=== PATIENT | female | born 1985 | race Caucasian/White ===

== ENCOUNTER 2023-03-11 14:35 | Outpatient (CLI) | payer OTHER ==
[~2023-03-11] VITALS: Ht 152.4 cm; Wt 57.7 kg
[2023-03-11 15:05] VITALS: BP 107/53
[2023-03-11] MEDS ORDERED: ONDANSETRON 4 MG/2 ML (SDV) Z0FRAN IVP ONE (16:00)
[2023-03-11] MEDS ORDERED: LACTATED RINGERS 1,000 ML IV SCH (16:00)
[2023-03-11] MEDS ORDERED: PREN1TAB19 PO (17:11)
[2023-03-11] MEDS ORDERED: Kratom (17:11)
[2023-03-11 17:30] VITALS: BP 107/53
--- NOTE | 2023-03-13 11:55 | Physician Query-Final Dx ---
Clinic Account Progress/Dx Physician Query: Please give diagnosis Please include # weeks gestation Date of Service Mar 11, 2023 at 14:35 TRACY,JulMar 13, 2023 11:55
== END 2023-03-11 17:30 | disposition home or self-care (01) ==
LOC: WSo 14:35 → LDRP 14:37 → WSo 17:30
PROVIDERS: ATTEND Family Medicine
DX: O99.891 Other specified diseases and conditions complicating pregnancy (principal); R11.0 Nausea; R19.7 Diarrhea, unspecified; Z3A.00 Weeks of gestation of pregnancy not specified

== ENCOUNTER 2023-05-10 15:18 | Outpatient (CLI) | payer OTHER ==
[~2023-05-10] VITALS: Ht 152.4 cm; Wt 57.3 kg
[~2023-05-10 15:18] MED LIST: Kratom; PREN1TAB19 PO
[2023-05-10 15:30] VITALS: BP 108/57
[2023-05-10 15:53] LABS: BACTERIA,URINE TRACE /HPF; BILIRUBIN,URINE NEGATIVE (NEGATIVE); CLARITY,URINE CLEAR; COLOR,URINE YELLOW; GLUCOSE, URINE (UA) NEGATIVE (NEGATIVE); KETONES,URINE NEGATIVE (NEGATIVE); LEUKOCYTE ESTERASE ,URINE NEGATIVE (NEGATIVE); NITRITE,URINE NEGATIVE (NEGATIVE); PROTEIN,URINE NEGATIVE (NEGATIVE); SQUAMOUS EPITHELIAL CELL,UR RARE /HPF
[2023-05-10 16:08] LABS: AMPHETAMINE SCREEN, URINE POSITIVE (NEGATIVE); BARBITURATE SCREEN URINE NEGATIVE (NEGATIVE); CANNABINOID SCREEN, URINE NEGATIVE (NEGATIVE); COCAINE SCREEN URINE NEGATIVE (NEGATIVE); METHADONE STAT NEGATIVE (NEGATIVE); OPIATE SCREEN URINE NEGATIVE (NEGATIVE); OXYCODONE STAT NEGATIVE (NEGATIVE); PROPOXYPHENE STAT NEGATIVE (NEGATIVE); TRICYCLIC ANTIDEPRESSANTS SCRE NEGATIVE (NEGATIVE)
[2023-05-10] MEDS ORDERED: LACTATED RINGERS 1,000 ML 1,000 ML IV SCH ×2 (16:30→17:30)
[2023-05-10] MEDS ORDERED: LACTATED RINGERS 1,000 ML 1,000 ML IV ONE (16:35)
--- NOTE | 2023-05-10 19:35 | History & Physical-OB ---
OB - Chief Complaint & HPI Date/Time Date of Admission: Date of Admission: Date seen by a Provider: May 10, 2023 Time Seen by a Provider: 17:10 Chief Complaint/History OB-Reason for Admission/Chief: Obstetrical Complication Hx : 6 Hx Para: 3 Expected Date of Delivery: Jul 12, 2023 Gestational Age in Weeks: 31 Gestational Age in Days: 0 Other reason for admission: at 31w0d, presented to Labor and Delivery with complaint of contractions. She says she has never had painful contractions or started labor without her water being broken, but usually feels them more as tightening, and was noticing tightening around every 10 minutes this morning. 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 No heavy lifting. She denies vaginal bleeding, leaking fluid. Reports good movement. She denies complications with this , but has had nausea and vomiting ever since the beginning, still vomits about every other day, and her only previous obstetrical complication was a hemorrhage requiring d and c with her first delivery. She admits smoking, denies alcohol use, admits Kratom use which she states her first doctor in told her was okay. Denies any other substance use, has history in past, but reports last methamphetamine use year ago. Her medication list does not include it, but she states she uses albuterol inhaler around twice per week. History of Labs O neg, antibody neg, RI. HIV/hepB/hepC/RPR NR. GC/chlamydia neg. 1 hour gtt nml. Allergies and Home Medications Allergies Coded Allergies: No Known Drug Allergies (Unverified , 03/11/23) Patient Home Medication List Home Medication List Reviewed: Yes Vit/Iron Fumarate/FA ( Vitamins Tablet) 28 Mg Iron-800 Mcg Tablet, 1 EACH PO DAILY, (Reported) Entered as Reported by: MARIELENA DAMIAN on 03/11/231710 [Kratom] , BID, (Reported) Entered as Reported by: MARIELENA DAMIAN on 03/11/231710 OB - History Hx of Present Care: Yes Ultrasounds: Normal mid trimester US Obstetrical Complications: None Information Induced Hypertension: No Maternal Gestational Diabetes: No Hemorrhage: Yes Obstetrical History Hx : 6 Hx Para: 3 Hx # Term Pregnancies: 3 Hx # Pregnancies: 0 Number of Living Children: 3 Hx Total # of Abortions (Spona: 2 Hx Multiple Gestation: No Hx Ectopic : No Hx Stillbirth: No Hx Complication: Yes ( hemorrhage) Hx Induced Hypertens: No Hx Hemorrhage: Yes Delivery History Hx Dystocia: No Hx Forceps Assisted Delivery: No Hx Vacuum Extraction Assisted: No Hx Placenta Abnormality: No Hx Distress: No Hx Large For Gestational Age I: No Hx Small for Gestational Age I: No Hx Section: No Hx Vaginal Delivery Post C-Sec: No Hx Blood Disorders: No Adverse Rxn to Tranfusion: No Risk Variables Obstetrical Risk Variables: Not POA Anemia; POA Asthma; Not POA Autoimmune Disease, Not POA Bariatric Surgery, Not POA Bleeding Disorder, Not POA BMI >= 40, Not POA Cardiac Disease, Not POA Economic Housing Instabil, Not POA Gastrointestinal Disease, Not POA Gestational Diabetes, Not POA HIV, Not POA Hypertension, Not POA Product Safety Professional Anticoagulant U, Not POA Mental Health Disorder, Not POA Multiple , Not POA Neuromuscular Disease, Not POA Obstetrical VTE, Not POA Other Preeclampsia, Not POA Placenta Previa, Not POA Placental Abruption, Not POA Placenta Accreta Spectrum, Not POA Preexisting Diabetes, Not POA , Not POA Previous , Not POA Pulmonary Hypertension, Not POA Renal Disease, Not POA Severe Preeclampsia; Undetermined Substance Abuse; Not POA Thyrotoxicosis Patient Past Medical History PMHx: Mild intermittent asthma SurgHx: D and C Social History/Family History Alcohol Use: Denies Use Recreational Drug Use: Yes (Javi) Smoking Cessation: Current every day smoker 2nd Hand Smoke Exposure: No Immunizations Influenza Vaccine Up-to-Date: No; Not Current Rubella: immune RPR/VDRL: Negative GBS Status: Unknown HBsAG: Negative OB - Admission Exam Physical Exam Vitals: Vital Signs 05/10/23 15:30 Temp 36.2 Pulse 87 Resp 20 B/P (MAP) 108/57 Pulse Ox 99 O2 Delivery Room Air HEENT: NCAT Lungs: Clear Abdomen: Non tender Extremities: Normal Contractions on Admission: >10 Minutes Apart Labs Laboratory Tests Test 05/10/23 15:32 Range/Units Urine Color YELLOW Urine Clarity CLEAR Urine pH 6.0 5-9 Urine Specific [place] 1.025 H 1.016-1.022 Urine Protein NEGATIVE NEGATIVE Urine Glucose (UA) NEGATIVE NEGATIVE Urine Ketones NEGATIVE NEGATIVE Urine Nitrite NEGATIVE NEGATIVE Urine Bilirubin NEGATIVE NEGATIVE Urine Urobilinogen 0.2 < = 1.0 MG/DL Urine Leukocyte Esterase NEGATIVE NEGATIVE Urine RBC (Auto) TRACE H NEGATIVE Urine RBC NONE /HPF Urine WBC NONE /HPF Urine Squamous Epithelial Cells RARE /HPF Urine Crystals NONE /LPF Urine Bacteria TRACE /HPF Urine Casts NONE /LPF Urine Mucus NEGATIVE /LPF Urine Culture Indicated NO Urine Opiates Screen NEGATIVE NEGATIVE Urine Oxycodone Screen NEGATIVE NEGATIVE Urine Methadone Screen NEGATIVE NEGATIVE Urine Propoxyphene Screen NEGATIVE NEGATIVE Urine Barbiturates Screen NEGATIVE NEGATIVE Ur Tricyclic Antidepressants Screen NEGATIVE NEGATIVE Urine Phencyclidine Screen NEGATIVE NEGATIVE Urine Amphetamines Screen POSITIVE H NEGATIVE Urine Methamphetamines Screen POSITIVE H NEGATIVE Urine Benzodiazepines Screen NEGATIVE NEGATIVE Urine Cocaine Screen NEGATIVE NEGATIVE Urine Cannabinoids Screen NEGATIVE NEGATIVE OB - Assessment/Plan/Diagnosis Assessment Admission Dx contractions 31 weeks gestation Nonreassuring heart tones Urine toxicology positive for methamphetamines/amphetamines Asthma Admission Status: Observation Plan Problems: (1) Uterine contractions Assessment & Plan: Rare, with only a few contractions shortly after admit, none further. Continue to monitor. IVF bolus given. (2) Positive urine drug screen Assessment & Plan: Patient denies methamphetamine use, admits Kratom use. (3) Non-reassuring heart rate or rhythm affecting management of mother Assessment & Plan: heart tones with frequent periods of minimal variabili ty, occasional variable decelerations and borderline low baseline. Will give IVF bolus and monitor closely. Discussed if worsening, may need to consider transfer to facility with NICU in case of need for intervention. (4) 31 weeks gestation of FEDERICO MENENDEZ MD May 10, 2023 19:35
[2023-05-10 20:00] VITALS: BP 98/58
== END 2023-05-10 22:14 | disposition home or self-care (01) ==
LOC: LDRP 15:18 → WSo 15:18
PROVIDERS: ATTEND Family Medicine
DX: O62.9 Abnormality of forces of labor, unspecified (principal); Z3A.00 Weeks of gestation of pregnancy not specified
CPT/HCPCS: 80306; 81000; 96360; 96361; 99213

== ENCOUNTER 2023-06-11 11:26 | Outpatient (CLI) | payer OTHER ==
[~2023-06-11] VITALS: Ht 152.4 cm; Wt 58.6 kg
[2023-06-11 11:47] VITALS: BP 105/58
[2023-06-11 12:32] LABS: CLARITY,URINE CLEAR; COLOR,URINE YELLOW; GLUCOSE, URINE (UA) NEGATIVE (NEGATIVE); KETONES,URINE NEGATIVE (NEGATIVE); NITRITE,URINE NEGATIVE (NEGATIVE); PROTEIN,URINE NEGATIVE (NEGATIVE)
[2023-06-11 12:33] LABS: BACTERIA,URINE TRACE /HPF; BILIRUBIN,URINE NEGATIVE (NEGATIVE); LEUKOCYTE ESTERASE ,URINE NEGATIVE (NEGATIVE); WBC,URINE RARE /HPF
--- NOTE | 2023-06-12 08:48 | Physician Query-Final Dx ---
TRACY,06/12/23 0848: Clinic Account Progress/Dx Physician Query: Please give diagnosis Please include # weeks gestation Date of Service Jun 11, 2023 at 11:26 HALLIE MIRELES DO 06/12/23 1347: Clinic Account Progress/Dx DIAGNOSIS: Diagnosis 36 wk GA back pain TRACY,JulJun 12, 2023 08:48 HALLIE MIRELES DO Jun 12, 2023 13:47
== END 2023-06-11 13:22 | disposition home or self-care (01) ==
LOC: WSo 11:26 → LDRP 11:27 → WSo 13:22
PROVIDERS: ATTEND Family Medicine
DX: O99.891 Other specified diseases and conditions complicating pregnancy (principal); M54.9 Dorsalgia, unspecified; Z3A.36 36 weeks gestation of pregnancy
CPT/HCPCS: 81000; G0463; 99213

== ENCOUNTER 2023-06-20 15:09 | Outpatient (CLI) | payer OTHER ==
[~2023-06-20] VITALS: Ht 152.4 cm; Wt 58.4 kg
[2023-06-20] MEDS ORDERED: hydrOXYzine 25 MG CAPSULE PO ONE (15:45)
[2023-06-20] MEDS ORDERED: ACETAMINOPHEN 500 MG TABLET PO PRN (15:45)
[2023-06-20 15:52] VITALS: BP 105/57
[2023-06-20 16:19] LABS: CLARITY,URINE CLEAR; COLOR,URINE YELLOW; GLUCOSE, URINE (UA) NEGATIVE (NEGATIVE); KETONES,URINE 4+ (NEGATIVE); NITRITE,URINE NEGATIVE (NEGATIVE); PROTEIN,URINE NEGATIVE (NEGATIVE)
[2023-06-20 16:20] LABS: BACTERIA,URINE TRACE /HPF; BILIRUBIN,URINE NEGATIVE (NEGATIVE); LEUKOCYTE ESTERASE ,URINE NEGATIVE (NEGATIVE); SQUAMOUS EPITHELIAL CELL,UR RARE /HPF
== END 2023-06-20 20:05 ==
LOC: WSo 15:09 → LDRP 15:10 → WSo 20:05
PROVIDERS: ATTEND Family Medicine
DX: O26.899 Other specified pregnancy related conditions, unspecified trimester (principal); R11.10 Vomiting, unspecified; Z3A.00 Weeks of gestation of pregnancy not specified
CPT/HCPCS: 81000; 99213

== ENCOUNTER 2023-07-06 07:00 | Inpatient (IN) | payer OTHER ==
[2023-07-06] VITALS (68 sets, daily range): BP systolic 74–116; BP diastolic 44–65
[~2023-07-06] VITALS: Ht 152.4 cm; Wt 59.6 kg
[2023-07-06] MEDS ORDERED: MINERAL OIL 30 ML UDC TOP PRN (08:30)
[2023-07-06] MEDS ORDERED: D5 LR 1,000 ML IV SOLN 1,000 ML IV ONE (08:33)
[2023-07-06] MEDS: D5 LR 1,000 ML IV SOLN 1,000 ML IV SCH ×2 (08:38→16:44)
--- NOTE | 2023-07-06 08:38 | History & Physical-OB ---
OB - Chief Complaint & HPI Date/Time Date of Admission: Date of Admission: Jul 06, 2023 at 07:35 Date seen by a Provider: Jul 06, 2023 Time Seen by a Provider: 08:10 Chief Complaint/History OB-Reason for Admission/Chief: Induction of Labor Hx : 6 Hx Para: 3 Gestational Age in Weeks: 39 Gestational Age in Days: 1 Other reason for admission: Desires IOL History of Labs O Neg, Ab neg Rub Imm HIV/RPR/HepB/C NR Normal 1 hr GTT GBS neg Allergies and Home Medications Allergies Coded Allergies: No Known Drug Allergies (Unverified , 03/11/23) Patient Home Medication List Home Medication List Reviewed: Yes Vit/Iron Fumarate/FA ( Vitamins Tablet) 28 Mg Iron-800 Mcg Tablet, 1 EACH PO DAILY, (Reported) Entered as Reported by: MARIELENA DAMIAN on 03/11/23 4895 OB - History Hx of Present Care: Yes Ultrasounds: Normal mid trimester US Obstetrical Complications: None Medical Complications: None Obstetrical History Hx : 6 Hx Para: 3 Hx # Term Pregnancies: 3 Number of Living Children: 3 Hx Multiple Gestation: No Hx Stillbirth: No Hx Complication: Yes ( hemorrhage) Hx Induced Hypertens: No Delivery History Hx Dystocia: No Hx Large For Gestational Age I: No Hx Small for Gestational Age I: No Hx Section: No Hx Vaginal Delivery Post C-Sec: No Hx Blood Disorders: No Adverse Rxn to Tranfusion: No Patient Past Medical History PMHx: Mild intermittent asthma SurgHx: D and C Social History/Family History 2nd Hand Smoke Exposure: No OB - Admission Exam Physical Exam HEENT: NCAT Heart: Rhythm Normal Lungs: Clear Abdomen: Gravid Cervical Dilatation: 4cm Effacement: 50% Station: -1 Membranes: Intact Heart Rate: 120's Decelerations: No Decelerations Short Term Variability: Present 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 Variability: Average (6-25) Contractions on Admission: 6-10 Minutes Apart [place]a Scoring Tool (Modified) Dilation (cm): 3-4cm (2) Effacement (%): 51-79% (2) Descent/Station: -1,0 (2) Cervix Consistency: Medium(1) Cervix Position: Middle/Mid-Position (1) [place]a Score: 8 Labs Laboratory Tests Test 07/06/23 08:00 Range/Units OB - Assessment/Plan/Diagnosis Assessment Assessment: induction of labor Admission Dx Third Trimester 39 weeks gestation Admission Status: Inpatient Order (span 2 midnights) Reason for Inpatient Admission: Labor and post care Plan Other Plan 38 yo @ 39.1 wga here for elective IOL Plan - GBS neg - Pitocin induction - Desires Epidural KATJA KHAN MD Jul 06, 2023 08:38
[2023-07-06 08:42] LABS: BASOPHILS % (AUTO) 0 % (0-10); EOSINOPHILS # (AUTO) 0.1 10^3/uL (0.0-0.3); EOSINOPHILS % (AUTO) 1 % (0-10); HEMATOCRIT 30 % (35-52); HEMOGLOBIN 9.3 g/dL (11.5-16.0); LYMPHOCYTES # (AUTO) 2.3 10^3/uL (1.0-4.0); LYMPHOCYTES % (AUTO) 21 % (12-44); MEAN CORPUSCULAR HEMOGLOBIN 27 pg (25-34); MEAN CORPUSCULAR HGB CONC 32 g/dL (32-36); MEAN CORPUSCULAR VOLUME 85 fL (80-99); MEAN PLATELET VOLUME 9.4 fL (9.0-12.2); MONOCYTES # (AUTO) 0.9 10^3/uL (0.0-1.0); MONOCYTES % (AUTO) 8 % (0-12); NEUTROPHILS # (AUTO) 7.7 10^3/uL (1.8-7.8); NEUTROPHILS % (AUTO) 70 % (42-75); PLATELET COUNT 338 10^3/uL (130-400); WHITE BLOOD COUNT 11.1 10^3/uL (4.3-11.0)
[2023-07-06] MEDS ORDERED: OXYTOCIN DRIP PRE-MIX 500 ML IV SCH (08:45)
[2023-07-06 08:57] LABS: CLARITY,URINE CLEAR; COLOR,URINE YELLOW
[2023-07-06 08:58] LABS: BACTERIA,URINE FEW /HPF; BILIRUBIN,URINE NEGATIVE (NEGATIVE); GLUCOSE, URINE (UA) NEGATIVE (NEGATIVE); KETONES,URINE TRACE (NEGATIVE); LEUKOCYTE ESTERASE ,URINE TRACE (NEGATIVE); NITRITE,URINE NEGATIVE (NEGATIVE); PROTEIN,URINE TRACE (NEGATIVE)
[2023-07-06] MEDS ORDERED: fentaNYL 2 mcg/ml BUPIVA 0.125 100 ML ONE ×2 (13:34→23:23)
[2023-07-06] MEDS ORDERED: fentaNYL INJECTION 100 MCG/2 ML VIAL ONE (13:57)
[2023-07-06] MEDS ORDERED: LIDOCAINE PF 2% 5 ML VIAL ONE (13:57)
[2023-07-06] MEDS ORDERED: CATHETER FLUSH 10 ML SYR IV SCH (14:00)
[2023-07-06] MEDS: LACTATED RINGERS 1,000 ML 500 ML IV PRN (14:10)
--- OUTSIDE RECORDS SUMMARY | 2023-07-06 16:29 | XMS REPORT ---
Author ALEXANDER Gonzalez BANNER Organization Unknown Address [address] [place], [place] [id number] Phone Care Team Providers Care Merchandiser Seasonal Name Role Phone DK Austin Attending Social History Type Status Start Date End Date Code Code Syst em Sex Female Vital Signs Vital Sign Value Unit Deep Run Value Deep Run Unit Date/Time Recent/Initial? Code Code System Body Mass Index 25.39 kg/m2 06/22/2023 23:10 Initial 23150 -5 [facility] Systolic Blood Pressure 115 mm[Hg] 06/22/2023 23:10 Initial 8480- 6 [facility] Diastolic Blood Pressure 68 mm[Hg] 06/22/2023 23:10 Initial 8462- 4 [facility] Body Surface Area 1.58 m2 06/22/2023 23:10 Initial 3140- 1 LOINC Height 152.400 0 cm 60.00 in 06/22/2023 23:10 Initial 8302- 2 LOINC O2 Saturation 99 % 2022 23:10 Initial 99690 -5 [facility] Pulse 92.0 /min 06/22/2023 23:10 Initial 8867- 4 LOINC Respiration 20 /min 06/22/20 23:10 Initial 9279- 1 LOINC Temperature 36.8 Gini 98.2 F 06/22/20 23:10 Initial 8310- 5 LOINC Weight 58.97 kg 130.00 lbs 06/22/2023 23:10 Initial 60888 -7 [facility] Medications Medication Start Date End Date Route Frequency Dose Code Code System Medication Instructions Assessment You had the following problems:DENTAL PAIN Hospital Discharge Instructions Should you have any questions prior to discharge, please contact a member of your healthcare team. If you have left the hospital and have any questions, please contact your primary care physician. Reason For Referral No Data Found Problems Problem Start Date Resolved Date Status Code Code System DENTAL PAIN active 75343408 SNOMED-C T 06/22/2023 resolved 97335923 SNOMED-CT Allergies and Adverse Reactions Allergy Substance Reaction Severity Start Date Concern Status Co de Code System No Known Allergies Active 162219256 SNO MED-CT Plan of Treatment No Data Found Encounters Encounter Diagnosis Start Date Code Code Sys tem Toothache 06/22/2023 15760246 SNOMED-CT Personal Care Team Section Performer Name Performer Role Active Date Inactive Leonidas clemente
--- NOTE | 2023-07-06 17:45 | Labor Progress Note ---
Labor Progress Note Labor Progress Note Date Seen by Provider: Jul 06, 2023 Time Seen by Provider: 17:44 Subjective: Pt denies complaints. Comfortable with epidural. Objective: Assessment/Plan: Rachael Garvey is a (38 /Para 6 / 3,Gestational Age (wks)39.1 here for elective IOL CEFM/TOCO Continue pitocin protocol Anesthesia: Epidural in place, well controlled AROM 1714 clear Anticipate vaginal delivery. Vitals - Labs Vital Signs - I&O Vital Signs Date Time Temp Pulse Resp B/P (MAP) Pulse Ox O2 Delivery O2 Flow Rate FiO2 07/06/23 17:00 37.3 88 20 92/53 (66) 98 Room Air 07/06/23 16:46 86 20 96/53 (67) 99 Room Air 07/06/23 16:42 80 20 93/54 (67) 99 Room Air 07/06/23 16:30 87 20 93/58 (70) 99 Room Air 07/06/23 16:15 81 20 89/55 (66) 98 Room Air 07/06/23 16:00 86 20 94/56 (69) 98 Room Air 07/06/23 15:45 82 20 92/52 (65) 99 Room Air 07/06/23 15:30 88 20 95/54 (68) 99 Room Air 07/06/23 15:15 83 20 98/53 (68) 99 Room Air 07/06/23 15:00 92 20 92/58 (69) 99 Room Air 07/06/23 14:45 94 20 97/52 (67) 99 Room Air 07/06/23 14:37 90 20 102/57 (72) 99 Room Air 07/06/23 14:33 86 20 100/59 (73) 98 Room Air 07/06/23 14:29 86 20 98/54 (69) 98 Room Air 07/06/23 14:25 88 20 103/58 (73) 98 Room Air 07/06/23 14:21 37.4 86 20 102/58 (73) 99 Room Air 07/06/23 14:17 96 20 98/54 (69) 99 Room Air 07/06/23 14:13 91 20 109/57 (74) 99 Room Air 07/06/23 14:08 88 20 107/59 (75) 99 Room Air 07/06/23 14:03 93 20 108/58 (75) Room Air 07/06/23 13:50 95 20 109/65 (80) Room Air 07/06/23 13:48 95 20 101/57 (72) Room Air 07/06/23 13:33 88 20 102/57 (72) Room Air 07/06/23 13:18 88 20 105/56 (72) Room Air 07/06/23 13:03 83 20 105/58 (74) Room Air 07/06/23 12:48 86 20 103/61 (75) Room Air 07/06/23 12:33 86 20 104/53 (70) Room Air 07/06/23 12:18 86 20 101/51 (68) Room Air 07/06/23 12:00 87 20 95/54 (68) Room Air 07/06/23 11:45 88 20 103/57 (72) Room Air 07/06/23 11:30 36.7 87 20 113/54 (73) Room Air 07/06/23 11:16 86 20 107/62 (77) Room Air 07/06/23 11:02 90 20 105/60 (75) Room Air 07/06/23 10:55 85 20 102/59 (73) Room Air 07/06/23 10:30 83 20 96/55 (69) Room Air 07/06/23 10:15 84 20 101/63 (76) Room Air 07/06/23 10:00 91 20 101/60 (74) Room Air 07/06/23 09:45 90 20 81/47 (58) Room Air 07/06/23 09:30 92 20 90/59 (69) Room Air 07/06/23 09:15 90 20 100/63 (75) Room Air 07/06/23 07:51 36.8 91 20 97 Room Air Labs Laboratory Tests 07/06/23 08:00: White Blood Count 11.1H, Red Blood Count 3.46L, Hemoglobin 9.3L, Hematocrit 30L, Mean Corpuscular Volume 85, Mean Corpuscular Hemoglobin 27, Mean Corpuscular Hemoglobin Concent 32, Red Cell Distribution Width 15.5H, Platelet Count 338, Mean Platelet Volume 9.4, Immature Granulocyte % (Auto) 1, Neutrophils (%) (Auto) 70, Lymphocytes (%) (Auto) 21, Monocytes (%) (Auto) 8, Eosinophils (%) (Auto) 1, Basophils (%) (Auto) 0, Neutrophils # (Auto) 7.7, Lymphocytes # (Auto) 2.3, Monocytes # (Auto) 0.9, Eosinophils # (Auto) 0.1, Basophils # (Auto) 0.0, Immature Granulocyte # (Auto) 0.1, Urine Color YELLOW, Urine Clarity CLEAR, Urine pH 6.0, Urine Specific [place] 1.025H, Urine Protein TRACE, Urine Glucose (UA) NEGATIVE, Urine Ketones TRACEH, Urine Nitrite NEGATIVE, Urine Bilirubin NEGATIVE, Urine Urobilinogen 0.2, Urine Leukocyte Esterase TRACEH, Urine RBC (Auto) NEGATIVE, Urine RBC NONE, Urine WBC 5-10H, Urine Squamous Epithelial Cells 10-25H, Urine Crystals NONE, Urine Bacteria FEWH, Urine Casts NONE, Urine Mucus SMALLH, Urine Culture Indicated YES, Syphilis Total Antibody Negative KATJA KHAN MD Jul 06, 2023 17:45
[2023-07-07] VITALS (16 sets, daily range): BP systolic 91–117; BP diastolic 50–64
[2023-07-07] MEDS: D5 LR 1,000 ML IV SOLN 1,000 ML IV SCH (00:30)
[2023-07-07] MEDS ORDERED: LIDOCAINE 2% w/EPI 1:200,000 20 ML VIAL ONE (01:15)
--- NOTE | 2023-07-07 01:38 | OB Labor & Delivery Record ---
Vag Delivery Note Vag Delivery Note Date of Delivery: 07/07/23 Preoperative Diagnosis: Rachael Garvey is a (38 /Para 6 / 3,Gestational Age (wks)39.2 wga here for elective IOL Postoperative Diagnosis: Same Attending Surgeon/Physician: Katja Palafox MD Food Technologist: None Anesthesia: Epidural Delivery Type: @ 0107 Findings: Viable female , apgars 9/9, weight 6#0, 2710 grams Lacerations: 1st degree perineal laceration Intact placenta with 3 vessel cord. No nuchal cord, body cord or shoulder dystocia Estimated Blood Loss: 100 ml Complications: None Condition: Stable Description of Procedure: The patient is a 38 year old female who presented for elective IOL. She was admitted and informed consent was obtained. Her labor course was remarkable for pitocin induction. She progressed to complete dilatation and began to push. She was then set up for delivery. The 's head was delivered atraumatically in the PAVITHRA position. The shoulders and remainder of the infant's body were then delivered without difficulty. Upon delivery, the infant was vigorous and placed on maternal chest and the mouth and nares were bulb suctioned. After a 2 min delay cord was doubly clamped and cut by FOB and the infant remained on maternal chest. An intact placenta with 3-vessel cord delivered via Toya and there was found to be minimal bleeding.~ Vigorous fundal massage was performed and the fundus was found to be firm. IV oxytocin was given. Examination of the vagina and perineum revealed a 1st degree perineal laceration repaired in the usual fashion with 3-0 vicryl rapide suture. Following the repair, sponge, instrument and needle counts were correct. Mom and baby were both in stable condition in the labor suite. Vitals - Labs Vital Signs - I&O Vital Signs Date Time Temp Pulse Resp B/P (MAP) Pulse Ox O2 Delivery O2 Flow Rate FiO2 07/06/23 23:30 37.8 90 18 99/59 (72) 98 Room Air 07/06/23 23:15 83 18 74/44 (54) 98 Room Air 07/06/23 23:00 37.8 85 18 90/52 (65) 98 Room Air 07/06/23 22:45 86 18 103/56 (72) 99 Room Air 07/06/23 22:30 86 18 100/59 (73) 99 Room Air 07/06/23 22:15 93 18 96/59 (71) 99 Room Air 07/06/23 22:00 99 18 95/57 (70) 99 Room Air 07/06/23 21:45 37.5 87 18 94/58 (70) 99 Room Air 07/06/23 21:30 89 18 87/53 (64) 99 Room Air 07/06/23 21:15 89 18 86/54 (65) 98 Room Air 07/06/23 21:00 88 18 101/52 (68) 99 Room Air 07/06/23 20:45 84 18 91/54 (66) 98 Room Air 07/06/23 20:30 83 18 93/54 (67) 100 Room Air 07/06/23 20:15 87 18 98/58 (71) 99 Room Air 07/06/23 20:02 90 18 101/54 (70) 100 Room Air 07/06/23 20:00 37.1 88 18 104/54 (71) 100 Room Air 07/06/23 19:30 86 18 92/51 (65) 100 Room Air 07/06/23 19:15 86 20 98/60 (73) 100 Room Air 07/06/23 19:00 90 20 97/61 (73) 100 Room Air 07/06/23 18:45 88 20 92/56 (68) 99 Room Air 07/06/23 18:30 37.3 87 20 94/59 (71) 98 Room Air 07/06/23 18:15 87 20 99/58 (72) 99 Room Air 07/06/23 18:00 95 20 98/64 (75) 99 Room Air 07/06/23 17:45 85 20 109/64 (79) 99 Room Air 07/06/23 17:30 91 20 113/56 (75) 99 Room Air 07/06/23 17:15 98 20 116/61 (79) 99 Room Air 07/06/23 17:00 37.3 88 20 92/53 (66) 98 Room Air 07/06/23 16:46 86 20 96/53 (67) 99 Room Air 07/06/23 16:42 80 20 93/54 (67) 99 Room Air 07/06/23 16:30 87 20 93/58 (70) 99 Room Air 07/06/23 16:15 81 20 89/55 (66) 98 Room Air 07/06/23 16:00 86 20 94/56 (69) 98 Room Air 07/06/23 15:45 82 20 92/52 (65) 99 Room Air 07/06/23 15:30 88 20 95/54 (68) 99 Room Air 07/06/23 15:15 83 20 98/53 (68) 99 Room Air 07/06/23 15:00 92 20 92/58 (69) 99 Room Air 07/06/23 14:45 94 20 97/52 (67) 99 Room Air 07/06/23 14:37 90 20 102/57 (72) 99 Room Air 07/06/23 14:33 86 20 100/59 (73) 98 Room Air 07/06/23 14:29 86 20 98/54 (69) 98 Room Air 07/06/23 14:25 88 20 103/58 (73) 98 Room Air 07/06/23 14:21 37.4 86 20 102/58 (73) 99 Room Air 07/06/23 14:17 96 20 98/54 (69) 99 Room Air 07/06/23 14:13 91 20 109/57 (74) 99 Room Air 07/06/23 14:08 88 20 107/59 (75) 99 Room Air 07/06/23 14:03 93 20 108/58 (75) Room Air 07/06/23 13:50 95 20 109/65 (80) Room Air 07/06/23 13:48 95 20 101/57 (72) Room Air 07/06/23 13:33 88 20 102/57 (72) Room Air 07/06/23 13:18 88 20 105/56 (72) Room Air 07/06/23 13:03 83 20 105/58 (74) Room Air 07/06/23 12:48 86 20 103/61 (75) Room Air 07/06/23 12:33 86 20 104/53 (70) Room Air 07/06/23 12:18 86 20 101/51 (68) Room Air 07/06/23 12:00 87 20 95/54 (68) Room Air 07/06/23 11:45 88 20 103/57 (72) Room Air 07/06/23 11:30 36.7 87 20 113/54 (73) Room Air 07/06/23 11:16 86 20 107/62 (77) Room Air 07/06/23 11:02 90 20 105/60 (75) Room Air 07/06/23 10:55 85 20 102/59 (73) Room Air 07/06/23 10:30 83 20 96/55 (69) Room Air 07/06/23 10:15 84 20 101/63 (76) Room Air 07/06/23 10:00 91 20 101/60 (74) Room Air 07/06/23 09:45 90 20 81/47 (58) Room Air 07/06/23 09:30 92 20 90/59 (69) Room Air 07/06/23 09:15 90 20 100/63 (75) Room Air 07/06/23 07:51 36.8 91 20 97 Room Air I & O 07/07/23 06:59 Intake Total 100 ml Balance 100 ml Labs Laboratory Tests 07/06/23 08:00: White Blood Count 11.1H, Red Blood Count 3.46L, Hemoglobin 9.3L, Hematocrit 30L, Mean Corpuscular Volume 85, Mean Corpuscular Hemoglobin 27, Mean Corpuscular Hemoglobin Concent 32, Red Cell Distribution Width 15.5H, Platelet Count 338, Mean Platelet Volume 9.4, Immature Granulocyte % (Auto) 1, Neutrophils (%) (Auto) 70, Lymphocytes (%) (Auto) 21, Monocytes (%) (Auto) 8, Eosinophils (%) (Auto) 1, Basophils (%) (Auto) 0, Neutrophils # (Auto) 7.7, Lymphocytes # (Auto) 2.3, Monocytes # (Auto) 0.9, Eosinophils # (Auto) 0.1, Basophils # (Auto) 0.0, Immature Granulocyte # (Auto) 0.1, Urine Color YELLOW, Urine Clarity CLEAR, Urine pH 6.0, Urine Specific [place] 1.025H, Urine Protein TRACE, Urine Glucose (UA) NEGATIVE, Urine Ketones TRACEH, Urine Nitrite NEGATIVE, Urine Bilirubin NEGATIVE, Urine Urobilinogen 0.2, Urine Leukocyte Esterase TRACEH, Urine RBC (Auto) NEGATIVE, Urine RBC NONE, Urine WBC 5-10H, Urine Squamous Epithelial Cells 10-25H, Urine Crystals NONE, Urine Bacteria FEWH, Urine Casts NONE, Urine Mucus SMALLH, Urine Culture Indicated YES, Syphilis Total Antibody Negative KATJA PALAFOX MD Jul 07, 2023 01:38
[2023-07-07] MEDS ORDERED: BENZOCAINE/MENTHOL (DERMOPLAST) 56 ML CAN TP PRN (01:45)
[2023-07-07] MEDS ORDERED: WITCH HAZEL(TUCKS) 40 EA JAR TOP PRN (01:45)
[2023-07-07] MEDS ORDERED: OXYTOCIN DRIP PRE-MIX 500 ML IV SCH (01:45)
[2023-07-07] MEDS: IBUPROFEN 600 MG TABLET PO SCH ×4 (01:52→23:18)
[2023-07-07] MEDS: ACETAMINOPHEN 500 MG TABLET PO SCH ×4 (01:53→23:18)
[2023-07-07] MEDS: DOCUSATE SODIUM 100 MG CAPSULE PO SCH ×2 (08:55→20:26)
[2023-07-07] MEDS: CATHETER FLUSH 10 ML SYR IV SCH ×2 (08:57→15:00)
[2023-07-07] MEDS ORDERED: FERROUS SULFATE 325 MG (IRON) TABLET PO SCH (09:00)
--- NOTE | 2023-07-07 13:42 | Anesthesia-Regional Post-Op ---
Regional Patient Condition Mental Status: Alert, Oriented x3 Circulation: Same as Pre-Op Headache: Absent Sensation: Full Recovery Motor Block: Absent Post Op Complications Complications None Follow Up Care/Instructions Patient Instructions None needed. Anesthesia/Patient Condition Patient is doing well, no complaints, stable vital signs, no apparent adverse anesthesia problems. No complications reported per nursing. CHAUNCEY CEDEÑO DO Jul 07, 2023 13:42
[2023-07-08 03:27] LABS: BASOPHILS % (AUTO) 0 % (0-10); EOSINOPHILS # (AUTO) 0.2 10^3/uL (0.0-0.3); EOSINOPHILS % (AUTO) 2 % (0-10); HEMATOCRIT 28 % (35-52); LYMPHOCYTES # (AUTO) 3.9 10^3/uL (1.0-4.0); LYMPHOCYTES % (AUTO) 32 % (12-44); MEAN CORPUSCULAR HEMOGLOBIN 27 pg (25-34); MEAN CORPUSCULAR HGB CONC 32 g/dL (32-36); MEAN CORPUSCULAR VOLUME 84 fL (80-99); MEAN PLATELET VOLUME 9.7 fL (9.0-12.2); MONOCYTES % (AUTO) 8 % (0-12); NEUTROPHILS # (AUTO) 7.1 10^3/uL (1.8-7.8); NEUTROPHILS % (AUTO) 58 % (42-75); PLATELET COUNT 301 10^3/uL (130-400); WHITE BLOOD COUNT 12.4 10^3/uL (4.3-11.0)
[2023-07-08] MEDS ORDERED: FERR325T24 PO (03:54)
--- NOTE | 2023-07-08 03:55 | Discharge Inst-Women's Service ---
Discharge Inst-Women's Serv Depart Medication/Instructions New, Converted or Re-Newed RX: Transmitted to Pharmacy ([facility]) Instructions May take ibuprofen [id number] 2 or 3 tablets every 6 hours if needed for cramps Problems Reviewed?: Yes Consults/Follow Up Additional Follow Up: Yes (Dr. Palafox in 6 weeks) Activity Driving Instructions: No Driving for 1 Week Nothing Inside Vagina: No [place] (For 6 weeks) Diet Discharge Diet: Regular Diet Return to The Hospital For: As below Symptoms to Report to : Bleeding Excessive, Fever Over 101 Degrees F, Vaginal Discharge Foul For Any Problems or Questions: Contact Your Physician CECILIA GUEVARA MD Jul 08, 2023 03:54
--- NOTE | 2023-07-08 04:00 | Discharge Summary ---
Diagnosis/Chief Complaint Date of Admission Jul 06, 2023 at 07:35 Date of Discharge July 08, 2023 Admission Diagnosis Admission Diagnosis 1. Intrauterine at term 39 weeks 2 days Discharge Diagnosis 1. Intrauterine at term 39 weeks 2 days Chief Complaint/HPI Chief Complaint/HPI 38-year-old 6 now P3 who initially presented for induction of labor during the evening of July 06, 2023. her care was essentially unremarkable with Dr. Palafox. Discharge Summary-OBS Procedures 1. Epidural per anesthesia 2. Spontaneous vaginal delivery 3. Repair of first degree perineal laceration Discharge Physical Examination Allergies: Coded Allergies: No Known Drug Allergies (Unverified , 03/11/23) Vitals & I&Os Vital Sign - Last 12Hours Date Time Temp Pulse Resp B/P (MAP) Pulse Ox O2 Delivery O2 Flow Rate FiO2 07/07/23 20:27 36.2 85 18 112/59 (76) 98 Room Air General Appearance: No Acute Distress Respiratory: Clear to Auscultation Cardiovascular: Regular Rate Abdominal: Normal Bowel Sounds, Soft Hospital Course Was the Problem List Reviewed?: Yes following admission she underwent Pitocin induction. She went on to deliver a term viable female with Apgars of 9 at 1 minute and 9 at 5 minutes. Delivery was at 01: 07 on July 07, 2023. weighed 6 lbs. 0 oz. There was a first-degree perineal laceration that was repaired by Dr. Palafox without difficulty. Following delivery she underwent routine care orders. She had no complications during the remainder of stay. Her hemoglobin in the morning of July 08 was 9.0 compared to admission of 9.3. She was very eager for dismissal and will follow up with Dr. Palafox in 6 weeks. She was also given iron sent in to [facility]. Labs Laboratory Tests 07/08/23 03:18: White Blood Count 12.4H, Red Blood Count 3.32L, Hemoglobin 9.0L, Hematocrit 28L, Mean Corpuscular Volume 84, Mean Corpuscular Hemoglobin 27, Mean Corpuscular Hemoglobin Concent 32, Red Cell Distribution Width 15.4H, Platelet Count 301, Mean Platelet Volume 9.7, Immature Granulocyte % (Auto) 1, Neutrophils (%) (Auto) 58, Lymphocytes (%) (Auto) 32, Monocytes (%) (Auto) 8, Eosinophils (%) (Auto) 2, Basophils (%) (Auto) 0, Neutrophils # (Auto) 7.1, Lymphocytes # (Auto) 3.9, Monocytes # (Auto) 1.0, Eosinophils # (Auto) 0.2, Basophils # (Auto) 0.0, Immature Granulocyte # (Auto) 0.1 Microbiology 07/06/23 Urine Culture - Final, Complete NO GROWTH Discharge Instructions to patient/family Please see electronic discharge instructions given to patient. Discharge Medications Reviewed and agree with Discharge Medication list on patient's Discharge Instruction sheet CECILIA GUEVARA MD Jul 08, 2023 04:00
[2023-07-08] MEDS: ACETAMINOPHEN 500 MG TABLET PO SCH (04:13)
[2023-07-08] MEDS: IBUPROFEN 600 MG TABLET PO SCH (04:13)
[2023-07-08 04:15] VITALS: BP 97/59
[2023-07-08 05:02] VITALS: BP 97/59
== END 2023-07-08 05:02 | disposition home or self-care (01) | DRG 807 ==
LOC: LDRP 07:35
PROVIDERS: ADMIT Family Medicine; ATTEND Family Medicine
PROC: 3E033VJ Introduction of Other Hormone into Peripheral Vein, Percutaneous Approach (ICD-10-PCS; 2023-07-06)
PROC: 10907ZC Drainage of Amniotic Fluid, Therapeutic from Products of Conception, Via Natural or Artificial Opening (ICD-10-PCS; 2023-07-06)
PROC: 10E0XZZ Delivery of Products of Conception, External Approach (ICD-10-PCS; principal; 2023-07-07)
PROC: 0HQ9XZZ Repair Perineum Skin, External Approach (ICD-10-PCS; 2023-07-07)
DX: O99.52 Diseases of the respiratory system complicating childbirth (principal); Z37.0 Single live birth; O70.0 First degree perineal laceration during delivery; Z3A.39 39 weeks gestation of pregnancy; Z87.59 Personal history of other complications of pregnancy, childbirth and the puerperium; J45.20 Mild intermittent asthma, uncomplicated
CPT/HCPCS: 36415; 81000; 85025; 86780; 86850; 86900; 86901; 87088